=== PATIENT | female | born 1945 | race Caucasian/White ===

== ENCOUNTER 2016-08-23 12:26 | Outpatient (CLI) | payer OTHER ==
--- NOTE | 2016-08-23 12:50 | DIAGNOSTIC IMAGING REPORT ---
PROCEDURE: XR CHEST 2 VIEW INDICATION: COPD DYSPNEA CHRONIC TECHNIQUE: PA and lateral view. COMPARISON: None. FINDINGS: Severe emphysema. Lungs are clear. Cardiovascular structures are normal. Bony thorax is unremarkable. No significant interval change. IMPRESSION: 1. Emphysema.
== END 2016-08-23 23:00 | disposition home or self-care (01) ==
LOC: XR SRH 12:26
DX: J43.9 Emphysema, unspecified (principal)